=== PATIENT | female | born 1985 | race African-American/Black ===

== ENCOUNTER 2019-08-27 14:24 | Inpatient (IN) | payer SELFPAY ==
[~2019-08-27 14:24] MED LIST: Iopamidol-370 76% 500 ML 1 ML ONE
[2019-08-27] MEDS ORDERED: Ondansetron PF 4 MG/2 ML Vial ONE (14:47)
[2019-08-27] MEDS ORDERED: Morphine 4 MG/ML VIAL ONE ×3 (14:47→16:58)
[2019-08-27 15:38] LABS: Hemoglobin 13.7 g/dL (12.0-16.0); Mean Corpuscular HGB CONC 32.4 g/dL (32.0-36.0); Mean Corpuscular Hemoglobin 29.2 pg (27.0-31.0); Mean Platelet Volume 7.2 fL (7.4-10.4); Platelet Count 318 thou/uL (130-400); RBC Distribution Width 12.5 % (11.5-14.5); White Blood Cell (WBC) Count 15.4 thou/uL (4.8-10.8)
[2019-08-27 15:39] LABS: BHCG - Serum Negative (NEGATIVE); Pregs Control Background? CLEAR/WHITE (CLR/WHITE); Pregs Control Bar Appear? YES (CONTROL BAR)
[2019-08-27 15:52] LABS: ALT (SGPT) 12 U/L (8-55); AST (SGOT) 14 U/L (5-34); Albumin 3.9 g/dL (3.5-5.0); Alkaline Phosphatase 75 U/L (40-110); Anion Gap 12 mmol/L (10-20); BUN (Urea Nitrogen) 7 mg/dL (7.0-18.7); Bilirubin, Total 0.8 mg/dL (0.2-1.2); Calc. Creatinine Clearance 0 mL/min (70-130); Calcium 8.4 mg/dL (7.8-10.44); Carbon Dioxide 24 mmol/L (22-29); Chloride 104 mmol/L (98-107); Estimated GFR-MDRD Greater than 90; Glucose 119 mg/dL (70-105); Lipase 4 U/L (8-78); Potassium 3.8 mmol/L (3.5-5.1); Protein, Total 6.9 g/dL (6.0-8.3); Sodium 136 mmol/L (136-145)
[2019-08-27 15:53] LABS: Band 5 % (5-11); Eosinophils 2 % (0-10); Lymphocytes 4 % (21-51); MDiff Complete? YES; Monocytes 4 % (0-10); Neutrophil 84 % (42-75); Platelet Morphology Comment Appears Adequate; RBC Morphology Normal
--- NOTE | 2019-08-27 16:21 | CT ---
CT ABDOMEN AND PELVIS WITH IV CONTRAST 08/27/2019 CLINICAL INFORMATION: Abdominal pain with diarrhea. COMPARISON: None. Technique: Multiple contiguous axial CT images are obtained through the abdomen and pelvis with IV contrast. Cor onal reformatted images are provided. FINDINGS: Lower Chest: Bibasilar atelectasis. Vessels: Abdominal aorta is normal in caliber without evidence of an aortic dissection. Abdomen: Portal vein: Faintly opacified suggesting patency. Gallbladder: Increased density foci seen within the gallbladder compatible with cholelithiasis. Liver: within normal limits. Spleen: within normal limits. Pancreas: within normal limits. Adrenals: within normal limits. Kidneys: within normal limits. Bowel: Scattered colonic diverticula are seen in the descending colon. There is mild distention of th e cecum with fluid. Loops of small bowel are normal in caliber. Appendix: The appendix is mildly dilated measuring 8 mm in diameter. No periappendiceal inflammatory changes are seen. This could potentially be within normal limits for the patient. Peritoneum: No ascites or free air; no fluid collection. Mesentery and Retroperitoneum: No enlarged mesenteric or retroperitoneal lymph nodes. Abdominal Wall: within normal limits. Pelvis: Reproductive Organs: No pelvic masses. Pelvis within normal limits. Bladder: within normal limits. Bones: Degenerative changes are seen in the lumbosacral junction. IMPRESSION: 1. The appendix is mildly dilated measuring 8 mm, there is no periappendiceal inflammatory changes or fluid identified in the pelvis. Given mild dilatation of the appendix, findings are overall equivocal for appendicitis. However this is thought to more likely be within normal limits for the pa tient. Clinical correlation is recommended. 2. Fluid-filled cecum and ascending colon. 3. Cholelithiasis.
[2019-08-27 17:30] LABS: Bilirubin Negative (Negative); Blood, Urine Negative (Negative); Clarity Clear (Clear); Glucose, Urine (Dipstick) Normal (Negative); Leukocyte Negative Leu/uL (Negative); Nitrite Negative (Negative); Protein, Urine (Dipstick) Negative (Neg-Trace); Urobilinogen Normal mg/dL (Less than 2)
--- NOTE | 2019-08-27 18:43 | ULT ---
RIGHT UPPER QUADRANT ABDOMINAL ULTRASOUND: 08/27/19 COMPARISON: CT abdomen/pelvis08/27/19. HISTORY: Cholelithiasis seen on CT. Abdominal pain. TECHNIQUE: Multiplanar atwood scale and color Doppler images were obtained in a right upper quadrant abdominal ult rasound. FINDINGS: The liver is normal in echogenicity without focal lesions or intrahepatic ductal dilatation. The gall bladder contains multiple shadowing gallstones without gallbladder wall thickening or pericholecystic fluid. The common bile duct is enlarged measuring 8 mm. The visualized portions of the pancreas are unremarkable. The right kidney is normal in echogenicity without hydronephrosis or calculus and measures 10.6 cm in length. IMPRESSION: 1. Cholelithiasis. 2. Enlargement of the common bile duct. POS: EAA
[2019-08-27] MEDS ORDERED: Piperacillin/Tazobactam 4.5 GM VIAL ONE (19:23)
[2019-08-27] MEDS ORDERED: Acetaminophen 650 MG Suppository PR PRN (19:55)
[2019-08-27] MEDS ORDERED: Ondansetron ODT 4 MG TAB PO PRN (19:55)
[2019-08-27] MEDS ORDERED: Acetaminophen 325 MG TAB PO PRN (19:55)
[2019-08-27] MEDS ORDERED: Ondansetron PF 4 MG/2 ML Vial IVP PRN (19:55)
[2019-08-27] MEDS ORDERED: HumaLOG 300 UNITS/3 ML VIAL SC PRN (19:56)
[2019-08-27] MEDS ORDERED: Dextrose 5% in Water 1,000 ML IV PRN (19:56)
[2019-08-27] MEDS ORDERED: Morphine 4 MG/ML VIAL SLOW IVP PRN (19:56)
[2019-08-27] MEDS ORDERED: Dextrose 50% Abboject 50 ML SYRINGE SLOW IVP PRN (19:56)
[2019-08-27] MEDS ORDERED: Dextrose 5 %-0.45 % NaCl 1,000 ML IV SCH (20:00)
--- NOTE | 2019-08-27 20:05 | PDOC.HHP ---
Hospitalist HPI - History of Present Illness Abdominal pain History of Present Illness: Patient states she developed abdominal pain last night, states it was sudden in onset and sharp, in the supraumbilical region. The pain later woke her up from her sleep, she felt it might be gas and took gas-x. She eventually fell back asleep and woke in the morning with worsening pain which was radiating down to the RLQ. She reports feeling nauseated. The pain has been constant since this morning, described as a severe ache. She states the pain has been a 10/10 in severity with associated nausea but no vomiting. She did develop diarrhea. Denies any blood in her stools. In the ED she has had several doses of Morphine (4 mg x 3 and her pain has finally eased to a 5/10 in severity. ED Course: test was negative. Labs notable for a WCC of 15. LFTs and lipase normal. CT Abdomen/Pelvis: 1. The appendix is mildly dilated measuring 8 mm, there is no periappendiceal inflammatory changes or fluid identified in the pelvis. Given mild dilatation of the appendix, findings are overall equivocal for appendicitis. However this is thought to more likely be within normal limits for the patient. Clinical correlation is recommended. 2. Fluid-filled cecum and ascending colon. 3. Cholelithiasis. RUQ US: MPRESSION: 1. Cholelithiasis. 2. Enlargement of the common bile duct. Patient started on IV Zosyn and IV fluids. Case discussed with Dr. Benito, per Dr. Thomson. Referred for admission re: Cholecystitis vs. Appendicitis. Hospitalist ROS - Review of Systems Constitutional: reports: malaise. denies: fever, chills, sweats, weakness, other Eyes: denies: pain, vision change, conjunctivae inflammation, eyelid inflammation, redness, other ENT: denies: ear pain, ear discharge, nose pain, nose discharge, nose congestion , mouth pain, mouth swelling, throat pain, throat swelling, other Respiratory: reports: other (tachypnea due to pain, has improved since given morphine). denies: cough, dry, shortness of breath, hemoptysis, SOB with excertion, pleuritic pain, sputum, wheezing Cardiovascular: denies: chest pain, palpitations, orthopnea, paroxysmal noc. dyspnea, edema, light headedness, other Gastrointestinal: reports: abdominal pain, diarrhea Genitourinary: denies: dysuria, frequency, incontinence, hematuria, retention, other Musculoskeletal: denies: neck pain, shoulder pain, arm pain, back pain, hand pain, leg pain, foot pain, other Skin: denies: rash, lesions, romulo, bruising, other Neurological: denies: weakness, numbness, incoordination, change in speech, confusion, seizures, other - Medication Medications: ALLERGIES: No known drug allergies. CURRENT MEDICATIONS: hydrOXYzine HCl oral tablet : Strength - 10 mg : ORAL Patient Dose: Unknown.unknown dose. Adderall tablet : Strength - 15 mg : ORAL Patient Dose: Unknown.unknown dose. metFORMIN solution : Strength - 500 mg/5 mL : ORAL Patient Dose: Unknown.unknown dose. Hospitalist History - Past Medical History Source: patient Psych: reports: Anxiety Endocrine: reports: Diabetes - Past Surgical History Past Surgical History: reports: no pertinent history - Family History Family History: reports: no pertinent history - Social History Smoking Status: Never smoker Alcohol: reports: None Drugs: reports: none Living Situation: With Family Activity level: independent ambulation - Exam General Appearance: NAD, awake alert General - other findings: Drowsy, but easily woken and able to answer questions ENT: normocephalic atraumatic, no oropharyngeal lesions, moist mucosa Neck: supple, no lymphadenopathy Heart: RRR, no murmur, no gallops Respiratory: CTAB, no wheezes, no rales, normal chest expansion, no tachypnea Gastrointestinal: soft, non-distended, no palpable masses, tender to palpation ( RLQ, rebound tenderness, negative mata's sign.) Extremities: no edema Skin: normal turgor, no lesions, no rashes Neurological: cranial nerve grossly intact, no focal deficits Musculoskeletal: normal tone, normal strength, no muscle wasting Psychiatric: normal affect, normal behavior, A&O x 3 Hospitalist Results - Labs Result Diagrams: 08/27/19 15:08/27/19 15:19 Lab results: WBC 15.4 thou/uL (4.8-10.8) H 08/27/19 15:19 Hgb 13.7 g/dL (12.0-16.0) 08/27/19 15: Hct 42.3 % (36.0-47.0) 08/27/19 15:19 MCV 90.0 fL (78.0-98.0) 08/27/19 15:19 Plt Count 318 thou/uL (130-400) 08/27/19 15:19 Band Neuts % (Manual) 5 % (5-11) 08/27/19 15:19 Sodium 136 mmol/L (136-145) 08/27/19 15:19 Potassium 3.8 mmol/L (3.5-5.1) 08/27/19 15:19 Chloride 104 mmol/L (98-107) 08/27/19 15:19 Carbon Dioxide 24 mmol/L (22-29) 08/27/19 15:19 BUN 7 mg/dL (7.0-18.7) 08/27/19 15:19 Creatinine 0.73 mg/dL (0.6-1.1) 08/27/19 15:19 Glucose 119 mg/dL (70-105) H 08/27/19 15:19 Lactic Acid 1.1 mmol/L (0.5-2.2) 08/27/19 19:23 Calcium 8.4 mg/dL (7.8-10.44) 08/27/19 15:19 Total Bilirubin 0.8 mg/dL (0.2-1.2) 08/27/19 15:19 AST 14 U/L (5-34) 08/27/19 15:19 ALT 12 U/L (8-55) 08/27/19 15:19 Alkaline Phosphatase 75 U/L (40-110) 08/27/19 15:19 Serum Total Protein 6.9 g/dL (6.0-8.3) 08/27/19 15:19 Albumin 3.9 g/dL (3.5-5.0) 08/27/19 15:19 Lipase 4 U/L (8-78) L 08/27/19 15:19 Urine Ketones 40 mg/dL (Negative) A 08/27/19 17:13 Urine Blood Negative (Negative) 08/27/19 17:13 Urine Nitrite Negative (Negative) 08/27/19 17:13 Ur Leukocyte Esterase Negative Candace/uL (Negative) 08/27/19 17:13 - Radiology Interpretation CT scan - abdomen Status: report reviewed by [facility] Hospitalist H&P A/P - Problem (1) Abdominal pain Code(s): R10.9 - UNSPECIFIED ABDOMINAL PAIN Status: Acute (2) Diarrhea Code(s): R19.7 - DIARRHEA, UNSPECIFIED Status: Acute (3) Cholelithiasis Code(s): K80.20 - CALCULUS OF GALLBLADDER W/O CHOLECYSTITIS W/O OBSTRUCTION Status: Acute (4) Diabetes mellitus Code(s): E11.9 - TYPE 2 DIABETES MELLITUS WITHOUT COMPLICATIONS Status: Acute (5) Anxiety Code(s): F41.9 - ANXIETY DISORDER, UNSPECIFIED Status: Acute - Plan Plan: Possible appendicits given pain was periumbilical and now localized to the RLQ, + rebound tenderness and negative mata's sign. Appendix mildly dilated on imaging, measuring 8mm. Lactic acid has been requested. Continue IV fluids and IV antibiotics. Dr. Thomson has consulted Dr. Benito (General Surgery), awaiting surgical review. Patient is diabetic, ISS initiated and we will monitor glucose. Continue NPO. IV fluids. Will check Mg+. Monitor BP, slightly lower since Morphine given. GI prophylaxis: Famotidine. DVT Prophylaxis: Mechanical SCDs. Code Status: FULL Surrogate decision maker: Her mother Alden Patel.
[2019-08-28] MEDS: Dextrose 5 %-0.45 % NaCl 1,000 ML IV SCH ×3 (00:41→14:57)
[2019-08-28] MEDS: Piperacillin/Tazobactam 3.375 GM in Sodium Chloride 0.9% 100 ML IVPB SCH ×4 (00:42→20:47)
[2019-08-28] MEDS: Ketorolac Tromethamine 30 MG/ML VIAL IVP SCH ×5 (00:43→17:56)
[2019-08-28] MEDS: Famotidine/PF 20 mg/2ml Vial SLOW IVP SCH ×3 (00:43→20:48)
[2019-08-28 01:14] VITALS: BMI 28.2
[2019-08-28 06:55] LABS: Band 9 % (5-11); Hemoglobin 12.1 g/dL (12.0-16.0); Lymphocytes 5 % (21-51); MDiff Complete? YES; Mean Corpuscular HGB CONC 32.6 g/dL (32.0-36.0); Mean Corpuscular Hemoglobin 29.4 pg (27.0-31.0); Mean Corpuscular Volume 90.1 fL (78.0-98.0); Mean Platelet Volume 7.5 fL (7.4-10.4); Monocytes 2 % (0-10); Neutrophil 84 % (42-75); Platelet Count 310 thou/uL (130-400); Platelet Morphology Comment Appears Adequate; RBC Distribution Width 12.7 % (11.5-14.5); RBC Morphology Normal; Red Blood Cell (RBC) Count 4.12 mill/uL (4.20-5.40); White Blood Cell (WBC) Count 22.7 thou/uL (4.8-10.8)
[2019-08-28 07:02] LABS: ALT (SGPT) Less than 7 U/L (8-55); AST (SGOT) 11 U/L (5-34); Albumin 3.2 g/dL (3.5-5.0); Alkaline Phosphatase 64 U/L (40-110); Anion Gap 11 mmol/L (10-20); BUN (Urea Nitrogen) 10 mg/dL (7.0-18.7); Bilirubin, Total 0.6 mg/dL (0.2-1.2); Calc. Creatinine Clearance 119 mL/min (70-130); Calcium 7.9 mg/dL (7.8-10.44); Carbon Dioxide 23 mmol/L (22-29); Chloride 103 mmol/L (98-107); Estimated GFR-MDRD Greater than 90; Globulin 2.8 g/dL (2.4-3.5); Glucose 105 mg/dL (70-105); Potassium 3.7 mmol/L (3.5-5.1); Sodium 133 mmol/L (136-145)
[2019-08-28] MEDS ORDERED: Morphine 4 MG/ML VIAL ONE (09:35)
[2019-08-28] MEDS ORDERED: Fentanyl 100 MCG/2 ML VIAL ONE ×2 (09:56→11:32)
--- NOTE | 2019-08-28 09:57 | CON ---
DATE OF CONSULTATION: 08/28/2019 CHIEF COMPLAINT: Lower abdominal pain. HISTORY OF PRESENT ILLNESS: The patient is a 34-year-old black female. She noted onset of midabdominal pain on Thursday, August 25. She presented to the emergency room yesterday evening for evaluation of this pain. She noted the pain seemed to have radiated down toward the right side of her abdomen. She denied nausea or vomiting. She acknowledged one episode of diarrhea before she presented. In the emergency room, she underwent evaluation with laboratory and radiologic studies. Her CBC showed an elevated white blood cell count of 15.4 with a hemoglobin of 13.7. Chemistries were unremarkable with essentially normal electrolytes and liver function tests. Her urinalysis was also unremarkable. The CT scan revealed a slightly dilated appendix, but no evidence of periappendiceal inflammation. She was also noted to have cholelithiasis. She was admitted to the hospital for observation. She was started on antibiotics using Zosyn. This morning, she believes the pain is a little better, but notes that she still has some discomfort. She has been afebrile overnight with a maximum temperature of 99.6, her pulse rate has been as high as 101, but is currently 82. Laboratory evaluation this morning, however, does reveal that her white blood cell count has gone from 15.4 up to 22.7. PAST MEDICAL HISTORY: Significant for anxiety, ADD, diabetes mellitus. PAST SURGICAL HISTORY: None. MEDICATIONS: 1. Hydroxyzine. 2. Metformin. 3. Adderall. ALLERGIES: NO KNOWN DRUG ALLERGIES. PERSONAL AND SOCIAL HISTORY: She does not smoke and does not drink alcohol. She is . She has 4 children, none of whom live with her. She lives with her father in [place]. 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 REVIEW OF SYSTEMS: Otherwise unremarkable. FAMILY HISTORY: Noncontributory. PHYSICAL EXAMINATION: VITAL SIGNS: Temperature is 98.6, pulse 82, blood pressure is 92/56. GENERAL: She is a well-developed, well-nourished, pleasant black female, resting in bed, in no acute distress. She is alert and oriented x3. HEAD, EYES, EARS, NOSE, AND THROAT: Unremarkable. NECK: Supple without mass or tenderness. LUNGS: Clear to auscultation throughout. CARDIAC: Regular rate and rhythm without murmur. ABDOMEN: Nondistended. Bowel sounds are present and normoactive. She has obvious tenderness with mild diffuse tenderness. She has what appears to be more focal tenderness in the right lower quadrant with peritoneal findings. EXTREMITIES: Unremarkable. ASSESSMENT: The patient with suspected acute appendicitis. She does have cholelithiasis as well. Some cholecystitis is possible, but felt to be less likely. I recommend proceeding with laparoscopic appendectomy. I will evaluate her gallbladder during the surgery. If there are inflammatory changes, then cholecystectomy may be performed as well or in place of the appendectomy. She understands all this. I have explained the operation potential in detail with her as well as potential risks. She understands and agrees to proceed. Job ID: [id number]
[2019-08-28] MEDS ORDERED: Lidocaine 1% w/Epinephrine 1:100K 20 ML VIAL ONE (10:15)
[2019-08-28] MEDS ORDERED: Bupivacaine 0.25% HCL 30 ML VIAL ONE (10:15)
[2019-08-28] MEDS ORDERED: Rocuronium Bromide 10 MG/ML (10ML VIAL) ONE (11:29)
[2019-08-28] MEDS ORDERED: PHENYLEPHRINE-NS 100 MCG/ML 10 ML SYRINGE ONE (11:29)
[2019-08-28] MEDS ORDERED: PROPOFOL 200 MG/20 ML VIAL ONE (11:29)
[2019-08-28] MEDS ORDERED: Ketorolac Tromethamine 30 MG/ML VIAL ONE (11:29)
[2019-08-28] MEDS ORDERED: Lidocaine 1% PF 5 ML VIAL ONE (11:29)
[2019-08-28] MEDS ORDERED: Succinylcholine Chloride 20 MG/ML 10 ml SYRINGE FS ONE (11:29)
[2019-08-28] MEDS ORDERED: EPHEDRINE 25 MG/5 ML SYRINGE ONE (11:29)
[2019-08-28] MEDS ORDERED: Dexamethasone 20 MG/5 ML VIAL ONE (11:29)
[2019-08-28] MEDS ORDERED: Ondansetron PF 4 MG/2 ML Vial ONE (11:29)
[2019-08-28] MEDS ORDERED: SUGAMMADEX SODIUM 200 MG/2 ML VIAL ONE (11:32)
[2019-08-28] MEDS ORDERED: Promethazine HCl 25 MG/ML VIAL SLOW IVP PRN (12:03)
[2019-08-28] MEDS ORDERED: Morphine Sulfate 2 MG/ML SYRINGE SLOW IVP PRN (12:03)
[2019-08-28] MEDS ORDERED: PACU-Morphine 4MG/ML VIAL SLOW IVP PRN (12:03)
[2019-08-28] MEDS ORDERED: Meperidine HCl/PF 25 MG/ML VIAL SLOW IVP PRN (12:03)
[2019-08-28] MEDS ORDERED: Ondansetron HCl/PF 4 MG/2 ML Vial IVP PRN (12:03)
[2019-08-28] MEDS ORDERED: Promethazine HCl 25 MG/ML VIAL IM PRN (12:03)
[2019-08-28] MEDS ORDERED: HYDROmorphone 2 MG/ML VIAL SLOW IVP PRN (12:03)
--- NOTE | 2019-08-28 14:23 | PDOC.HOSPP ---
- Subjective Encounter Date: 08/28/19 Encounter Time: 02:20 Subjective: returned from OR, having brother. s/p appendectomy - Objective Vital Signs & Weight: Vital Signs (12 hours) Temp Pulse Resp BP BP Pulse Ox 08/28/19 08:00 99 08/28/19 07:15 98.6 F 82 17 92/56 L 99 08/28/19 04:00 99.1 F 93 16 97/62 98 Weight Weight 169 lb 12.095 oz Result Diagrams: 08/28/19 05:52 08/28/19 05:52 Additional Labs: Accuchecks 08/28/19 08/27/19 04:35 20:59 POC Glucose 114 H 116 H Hospitalist ROS - Medication Medications: Active Medications Generic Name Dose Route Start Last Admin Trade Name Freq PRN Reason Stop Dose Admin Famotidine 20 mg 08/27/19 21:00 08/28/19 08:04 Pepcid SLOW IVP 20 mg Q12HR ENRIKE Administration Piperacillin Sod/Tazobactam 100 mls @ 200 mls/hr 08/28/19 02:00 08/28/19 08: 03 Sod 3.375 gm/ Sodium Chloride IVPB 100 mls 0200,0800,1400,2000 ENRIKE Administration Dextrose/Sodium Chloride 1,000 mls @ 75 mls/hr 08/27/19 20:00 08/28/19 08:06 D5 1/2 Ns IV Not Given .[id number] ENRIKE Ketorolac Tromethamine 15 mg 08/27/19 23:59 08/28/19 06:23 Toradol IVP 08/30/19 23:59 15 mg Q6HR ENRIKE Administration - Exam General Appearance: NAD, awake alert Eye: PERRL ENT: normocephalic atraumatic Neck: supple Heart: RRR Respiratory: CTAB, normal chest expansion Gastrointestinal: soft, diminished bowl sounds Gastrointestinal - other findings: s/p appendectomy Neurological: no focal deficits Hosp A/P - Plan Abdominal pain (2) Diarrhea (3) Cholelithiasis (4) Diabetes mellitus Code(s): E11.9 - TYPE 2 DIABETES MELLITUS WITHOUT COMPLICATIONS Status: Acute (5) Anxiety - s/p s/p appendectomy -cw IV antibiotics until tomorrow and then will dc if clinically stable. --started broth - advance to diabetic diet as tatiana'd if ok w.. sux this evening. -am labs ordered - Morphine prn GI prophylaxis: Famotidine. scds.
[2019-08-28] MEDS ORDERED: Morphine 2 MG/ML SYRINGE SLOW IVP PRN (14:52)
[2019-08-28] MEDS: Acetaminophen 500 MG TAB PO SCH ×2 (14:58→20:48)
[2019-08-28] MEDS ORDERED: Sodium Chloride 0.9% 1,000 ML IV SCH (15:00)
[2019-08-28] MEDS: HumaLOG 300 UNITS/3 ML VIAL SC PRN (18:48)
[2019-08-28] MEDS: Potassium Chloride 20 MEQ in Lactated Ringer's 1,000 ML IV SCH (18:50)
[2019-08-29] MEDS: Ketorolac Tromethamine 30 MG/ML VIAL IVP SCH ×4 (00:46→17:36)
--- NOTE | 2019-08-29 00:55 | OP ---
DATE OF PROCEDURE: 08/28/2019 PREOPERATIVE DIAGNOSIS: Suspected acute appendicitis. POSTOPERATIVE DIAGNOSIS: Suspected acute appendicitis with what appeared to be evidence of peritonitis, suspected perforated tip appendicitis. PROCEDURE PERFORMED: Laparoscopic appendectomy with lower abdominal exploration, extensive abdominal washout. ANESTHESIA: General endotracheal. INDICATIONS: The patient is a 34-year-old black female. She presented to the hospital with abdominal pain. A CT scan was not definitive for appendicitis; however, after a period of brief observation, provided IV antibiotics and IV fluids, her pain persisted and leukocytosis worsened. I, therefore, recommended a laparoscopy with probable appendectomy. DESCRIPTION OF OPERATION: Informed consent was obtained. The patient was taken to the operating room, where general endotracheal anesthesia was obtained. The patient was laid in supine position after she was prepped with ChloraPrep and draped in sterile fashion. Young catheter was placed before surgery. Local anesthetic was infiltrated with a mixture of 1% lidocaine with epinephrine and 0.25% Marcaine. A 5 mm umbilical incision was created through which a Veress needle was passed into the peritoneal cavity and pneumoperitoneum was established using carbon dioxide up to a pressure of 15 mmHg. A 5 mm trocar port was placed through the same incision and a laparoscopic camera was passed through this port. Under direct vision, 2 additional ports were placed including a 5 mm left lower quadrant port and a 12 mm suprapubic port. There was noted to be a purulent-appearing fluid present within the abdomen. I initially examined the appendix, which appeared enlarged and somewhat inflamed. There was some omentum adherent to the tip of the appendix. Initially to my examination, the cyst did not appear to be consistent with a perforated appendicitis. However, secondary to the inflammation, I felt it appropriate to proceed with an appendectomy. The mesoappendix was taken down using the electrocautery, and the base of the appendix was skeletonized and divided using an Endo-JORGE stapler. The appendix was placed in a specimen retrieval bag, was removed through the suprapubic port. The fascia of the port site was closed with 0 Vicryl suture using a GraNee needle. I then conducted a thorough exploration of the remainder of the abdomen. I noted that the small bowel appeared to be inflamed through most of the length of the small bowel. I, therefore, ran the small bowel all the way from the cecum up to the ligament of Treitz. Aside from the inflammatory change with the erythema and injection, there was no obvious lesion associated with this. Purulence was encountered along the way and this was irrigated and aspirated. The gallbladder was inspected. This was without any evidence of inflammation. The patient does have known cholelithiasis. Aside from some minimal purulent-appearing fluid up around the liver, the liver was without obvious abnormality. The stomach was examined and again without inflammation at all. The pelvis was thoroughly examined, identifying both fallopian tubes, both ovaries, and uterus. There were no adhesions within the pelvis. The sigmoid colon was examined and found to be without evidence of inflammatory change. Having found no other etiology for the inflammation or possible infection, I proceeded to irrigate the abdomen with 2 L of warm saline. All irrigant was aspirated. The appendiceal staple line was examined for hemostasis. Not mentioned earlier that some of the intraabdominal fluid within the pelvis was aspirated upon entry and submitted for culture. All ports and instruments were removed under direct vision. Pneumoperitoneum was carefully evacuated. 0.25% Marcaine with epinephrine was infiltrated into each port site. Skin edges were approximated with 4-0 Monocryl subcuticular suture. Dermabond was placed externally. There were no complications. The patient tolerated the procedure well and was taken in stable condition to the recovery room. Job ID: [id number]
[2019-08-29] MEDS: Acetaminophen 500 MG TAB PO SCH ×4 (03:02→20:31)
[2019-08-29] MEDS: Piperacillin/Tazobactam 3.375 GM in Sodium Chloride 0.9% 100 ML IVPB SCH ×4 (03:03→20:29)
[2019-08-29 05:14] LABS: #Lymphocytes 0.8 thou/uL (1.20-3.40); #Monocytes 0.8 thou/uL (0.11-0.59); #Neutrophils 12.3 thou/uL (1.40-6.50); %Basophils 0.1 % (0.0-1.0); %Eosinophils 0.1 % (0.0-10.0); %Lymphocytes 5.9 % (21.0-51.0); %Monocytes 5.6 % (0.0-10.0); %Neutrophils 88.4 % (42.0-75.0); Hemoglobin 10.3 g/dL (12.0-16.0); Mean Corpuscular HGB CONC 31.7 g/dL (32.0-36.0); Mean Corpuscular Hemoglobin 28.7 pg (27.0-31.0); Mean Corpuscular Volume 90.3 fL (78.0-98.0); Mean Platelet Volume 7.6 fL (7.4-10.4); Platelet Count 284 thou/uL (130-400); RBC Distribution Width 12.6 % (11.5-14.5); White Blood Cell (WBC) Count 13.9 thou/uL (4.8-10.8)
[2019-08-29 05:30] LABS: ALT (SGPT) 7 U/L (8-55); AST (SGOT) 10 U/L (5-34); Albumin 2.8 g/dL (3.5-5.0); Alkaline Phosphatase 61 U/L (40-110); Anion Gap 10 mmol/L (10-20); BUN (Urea Nitrogen) 9 mg/dL (7.0-18.7); Bilirubin, Total 0.4 mg/dL (0.2-1.2); Calc. Creatinine Clearance 137 mL/min (70-130); Calcium 7.8 mg/dL (7.8-10.44); Carbon Dioxide 22 mmol/L (22-29); Chloride 108 mmol/L (98-107); Estimated GFR-MDRD Greater than 90; Globulin 2.6 g/dL (2.4-3.5); Glucose 114 mg/dL (70-105); Potassium 4.2 mmol/L (3.5-5.1); Protein, Total 5.4 g/dL (6.0-8.3); Sodium 136 mmol/L (136-145)
[2019-08-29] MEDS: Potassium Chloride 20 MEQ in Lactated Ringer's 1,000 ML IV SCH ×2 (05:46→08:47)
[2019-08-29] MEDS: Famotidine/PF 20 mg/2ml Vial SLOW IVP SCH ×2 (08:27→20:32)
--- NOTE | 2019-08-29 09:04 | PRG ---
DATE OF SERVICE: 08/29/2019 SUBJECTIVE: Ms. Fraser is postoperative day #1 following laparoscopic appendectomy. She appeared to have purulent material diffusely within the abdomen consistent with perforation. Interestingly, her initial cultures show no organisms seen within the fluid that was submitted within her peritoneum. She has been on Zosyn since her surgery. She tells me she feels much better and her discomfort is dramatically improved. She is hungry. OBJECTIVE: VITAL SIGNS: On examination, she is afebrile. Pulse is 63 and blood pressure is 100/69. GENERAL: She has been voiding regularly. LUNGS: Clear to auscultation. ABDOMEN: Soft with normoactive bowel sounds. Laparoscopic incisions are healing nicely. LABORATORY DATA: Her white blood cell count is down from 22 yesterday to 13.9 today. Hemoglobin is 10.3. Her chemistry profile reveals her electrolytes are unremarkable. Her sugars have been relatively well controlled. She has a sliding scale ordered. ASSESSMENT: The patient with what is presumed to have been perforated appendicitis. No other etiology of intraabdominal abnormality is noted. In light of this, I would recommend one more day of intravenous antibiotics. I will decrease her IV fluid rate and advance her diet up to a regular diet. I will check her CBC in the morning. I would anticipate discharge home tomorrow. Job ID: [id number]
[2019-08-29] MEDS: HumaLOG 300 UNITS/3 ML VIAL SC PRN (11:45)
--- NOTE | 2019-08-29 13:03 | PDOC.HOSPP ---
- Subjective Encounter Date: 08/29/19 Encounter Time: 09:50 Subjective: tolerating PO, denies abd. pain. - Objective Vital Signs & Weight: Vital Signs (12 hours) Temp Pulse Resp BP Pulse Ox 08/29/19 10:50 97.6 F 101 H 16 94/61 96 08/29/19 08:25 97 08/29/19 07:33 97.6 F 63 16 100/69 97 08/29/19 03:08 97.9 F 62 18 93/57 L 98 Weight Weight 169 lb 12.095 oz I&O: 08/28/19 08/29/19 08/30/19 06:59 06:59 06:59 Intake Total 4460 350 Output Total 250 Balance 4210 350 Result Diagrams: 08/29/19 04:48 08/29/19 04:48 Additional Labs: Accuchecks 08/29/19 08/29/19 08/28/19 10:54 05:05 20:43 POC Glucose 203 H 110 215 H 08/28/19 17:59 POC Glucose 194 H Hospitalist ROS - Medication Medications: Active Medications Generic Name Dose Route Start Last Admin Trade Name Freq PRN Reason Stop Dose Admin Acetaminophen 1,000 mg 08/28/19 15:00 08/29/19 08:27 Tylenol PO 1,000 mg 0300,0900,1500,2100 ENRIKE Administration Famotidine 20 mg 08/27/19 21:00 08/29/19 08:27 Pepcid SLOW IVP 20 mg Q12HR ENRIKE Administration Piperacillin Sod/Tazobactam 100 mls @ 200 mls/hr 08/28/19 02:00 08/29/19 08: 27 Sod 3.375 gm/ Sodium Chloride IVPB 100 mls 0200,0800,1400,2000 ENRIKE Administration Potassium Chloride 20 meq/ 1,010 mls @ 50 mls/hr 08/29/19 08:38 08/29/19 08: 47 Lactated Ringer's IV Not Given .[id number] ENRIKE Insulin Human Lispro 0 units 08/27/19 19:56 08/29/19 11:45 Humalog SC 3 unit .MILD SLIDING SCALE PRN Administration Mild Correctional Scale Insulin Human Lispro 0 units 08/27/19 19:56 08/28/19 20:48 Humalog SC 3 unit .BEDTIME SLIDING SC PRN Administration Bedtime Correctional Scale Ketorolac Tromethamine 30 mg 08/28/19 18:00 08/29/19 11:45 Toradol IVP 09/02/19 18:01 30 mg Q6HR ENRIKE Administration - Exam General Appearance: NAD, awake alert Eye: PERRL ENT: normocephalic atraumatic Heart: RRR Respiratory: CTAB, normal chest expansion Gastrointestinal: soft, normal bowel sounds Neurological: no focal deficits Hosp A/P - Plan Abdominal pain (2) Diarrhea (3) Cholelithiasis (4) Diabetes mellitus Code(s): E11.9 - TYPE 2 DIABETES MELLITUS WITHOUT COMPLICATIONS Status: Acute (5) Anxiety - s/p appendectomy with perf.. appendicitis -cw IV antibiotics until tomorrow and then will dc if clinically stable. --started broth - diabetic diet -am labs ordered - Morphine prn GI prophylaxis: Famotidine. scds. tolerating PO intake.
[2019-08-30] MEDS: Ketorolac Tromethamine 30 MG/ML VIAL IVP SCH ×2 (00:40→06:31)
[2019-08-30] MEDS: Acetaminophen 500 MG TAB PO SCH ×2 (03:19→09:22)
[2019-08-30] MEDS: Piperacillin/Tazobactam 3.375 GM in Sodium Chloride 0.9% 100 ML IVPB SCH ×2 (03:20→09:12)
[2019-08-30] MEDS: Potassium Chloride 20 MEQ in Lactated Ringer's 1,000 ML IV SCH (06:31)
[2019-08-30 06:43] LABS: #Eosinphils 0.2 thou/uL (0.0-0.7); #Lymphocytes 1.8 thou/uL (1.20-3.40); #Monocytes 0.6 thou/uL (0.11-0.59); #Neutrophils 7.4 thou/uL (1.40-6.50); %Basophils 0.5 % (0.0-1.0); %Eosinophils 1.6 % (0.0-10.0); %Lymphocytes 18.1 % (21.0-51.0); %Monocytes 6.1 % (0.0-10.0); %Neutrophils 73.8 % (42.0-75.0); Hemoglobin 10.3 g/dL (12.0-16.0); Mean Corpuscular HGB CONC 31.7 g/dL (32.0-36.0); Mean Corpuscular Hemoglobin 28.8 pg (27.0-31.0); Mean Corpuscular Volume 90.7 fL (78.0-98.0); Mean Platelet Volume 7.6 fL (7.4-10.4); Platelet Count 299 thou/uL (130-400); RBC Distribution Width 12.9 % (11.5-14.5); Red Blood Cell (RBC) Count 3.57 mill/uL (4.20-5.40)
[2019-08-30 07:01] LABS: Anion Gap 10 mmol/L (10-20); BUN (Urea Nitrogen) 11 mg/dL (7.0-18.7); Calc. Creatinine Clearance 135 mL/min (70-130); Calcium 7.8 mg/dL (7.8-10.44); Carbon Dioxide 21 mmol/L (22-29); Chloride 110 mmol/L (98-107); Estimated GFR-MDRD Greater than 90; Glucose 99 mg/dL (70-105); Potassium 3.9 mmol/L (3.5-5.1); Sodium 137 mmol/L (136-145)
[2019-08-30] MEDS: Famotidine/PF 20 mg/2ml Vial SLOW IVP SCH (09:12)
[2019-08-30] MEDS ORDERED: traMADol HCl 50 MG TAB PO PRN (09:23)
[2019-08-30] MEDS ORDERED: Amoxicillin/Potassium Clav 875 MG TAB PO SCH ×2 (09:30→21:00)
[2019-08-30 12:35] VITALS: BP 108/74; TEMP 98.1
[2019-08-30] MEDS ORDERED: Fluconazole 100 MG TAB PO SCH (13:00)
--- NOTE | 2019-08-30 15:00 | DIS ---
DATE OF ADMISSION: 08/27/2019 DATE OF DISCHARGE: 08/30/2019 DISCHARGE DIAGNOSES: 1. Abdominal pain. 2. Cholelithiasis. 3. Type 2 diabetes mellitus. 4. Anxiety. 5. Abdominal pain, gastroenteritis. 6. Perforated appendicitis, status post appendectomy. DISCHARGE MEDICATIONS: 1. Augmentin 875 twice a day. 2. Advil 20 mg daily. 3. Hydroxyzine 25 mg q.8 hours. 4. Lisinopril 5 mg daily. 5. Metformin 500 mg b.i.d. Consult General Surgery with Dr. Floyd Benito. PHYSICAL EXAMINATION: VITAL SIGNS: On the day of discharge, patient is resting. No acute events or complaints. GENERAL: She is able to tolerate her diet. I have examined her abdominal area. Her suture site looks good. CARDIOVASCULAR: Regular rate and rhythm without murmurs, rubs, or gallops. LUNGS: Clear to auscultation bilaterally without rales or rhonchi. ABDOMEN: Good bowel sounds. BS positive, and non-tender. The patient is ambulating. No shortness of breath or abdominal distress. HOSPITAL COURSE: A 34-year-old female presented with intractable abdominal pain as well as diarrhea. She had cholelithiasis as well as appendicitis. She went to surgery on August 27 for suspected acute appendicitis. She had a laparoscopic appendectomy with lower abdominal exploration and extensive abdominal washout. Postprocedure james, she did well. She was ambulating, tolerating her regular diet. She is expected to follow with Dr. Floyd Benito in 2 weeks. DISCHARGE INSTRUCTIONS: 1. Activity: As tolerated. 2. Diet: Regular diet. 3. Follow up with [facility] in 1 week. Follow up with Dr. Floyd Benito in 2 weeks. Job ID: [id number] [id number]
--- NOTE | 2019-08-31 02:37 | DIS ---
DATE OF ADMISSION: 08/27/2019 DATE OF DISCHARGE: 08/30/2019 ADMISSION DIAGNOSIS: Acute appendicitis. DISCHARGE DIAGNOSIS: Acute appendicitis, perforated. OPERATION PERFORMED: Laparoscopic appendectomy with abdominal washout on August 27. ADMISSION HISTORY: The patient is a 34-year-old black female. She presented to the hospital with complaint of abdominal pain and leukocytosis. CT scan was equivocal for appendicitis. No definite etiology of pain was noted. She was recognized to have cholelithiasis. She was admitted to the Hospitalist Service for observation. HOSPITAL COURSE: I saw the patient the following morning on August 27. Her pain was somewhat better in her estimation, but she still clearly had severe abdominal pain. It seemed to be more diffuse than typical. Additionally, her white blood cell count had gone up. I recommended laparoscopic appendectomy. She underwent uneventful surgery. There did appear to be diffuse purulence. Interestingly, the cultures from within the abdominal cavity did not reveal organisms. Although there were definitely adhesions to the appendix, I was not certain that this is a source of perforation. The only area that appeared significantly abnormal was at the tip of the appendix and I felt that this was therefore likely perforated tip appendicitis. Thorough exploration of the remainder of the abdomen revealed no other definite infectious source. Following the surgery, she did much better. She was afebrile throughout. Her vital signs were normal. She was hungry and desired advancement of her diet the following day. I continued her on Zosyn until she was discharged. Final cultures at the time were still pending, but there is no definite organism that was seen on culture. Her white blood cell count dropped from 22 before surgery down to 14 the day after surgery and down to 10 today. Today, she is tolerating her diet. Of note, she has minimal discomfort and feels very well. She is discharged home today with a prescription for Augmentin 875 mg for 5 days. She requires no pain medication other than ibuprofen or Tylenol. She will follow up from my office in 10 to 14 days. She is given instructions regarding activity and dietary restrictions. Job ID: [id number]
[2019-08-31] MEDS ORDERED: Fluconazole 100 MG TAB PO SCH (12:00)
[2019-09-01 20:08] LABS: GC by PCR Inconclusive (NotDetected)
[2019-09-01 20:09] LABS: Chlamydia by PCR Inconclusive (NotDetected)
== END 2019-08-30 14:00 | disposition home or self-care (01) | DRG 340 ==
LOC: ERS 14:24 → T4-A 20:43 → SURG A 08-28 13:00
PROVIDERS: ADMIT Internal Medicine; ATTEND Internal Medicine
PROC: 0DTJ4ZZ Resection of Appendix, Percutaneous Endoscopic Approach (ICD-10-PCS; principal; 2019-08-28)
DX: K35.32 Acute appendicitis with perforation, localized peritonitis, and gangrene, without abscess (principal); F41.9 Anxiety disorder, unspecified; E11.9 Type 2 diabetes mellitus without complications; K80.20 Calculus of gallbladder without cholecystitis without obstruction; F98.8 Other specified behavioral and emotional disorders with onset usually occurring in childhood and adolescence; J45.909 Unspecified asthma, uncomplicated; K52.9 Noninfective gastroenteritis and colitis, unspecified
CPT/HCPCS: 36415; 36416; 74177; 76705; 80048; 80053; 81003; 83605; 83690; 83735; 84703; 85025; 87040; 87070; 87205; 87480; 87491; 87510; 87591; 87660; 88304; 96361; 96365; 96375; 96376; J1100; J1885; J2001; J2270; J2405; J2543; J2704; J3010; J3480; J3490; J7120; Q9967; S0020; S0028

== ENCOUNTER 2021-04-15 04:36 | Emergency (ER) | payer SELFPAY ==
[2021-04-15] MEDS ORDERED: Acetaminophen 500 MG TAB ONE (04:58)
[2021-04-15] MEDS ORDERED: Ketorolac Tromethamine 30 MG/ML VIAL ONE (04:58)
== END 2021-04-15 06:09 | disposition home or self-care (01) ==
LOC: ERS 04:36
DX: K08.89 Other specified disorders of teeth and supporting structures (principal); I10 Essential (primary) hypertension; E11.9 Type 2 diabetes mellitus without complications; J45.909 Unspecified asthma, uncomplicated
CPT/HCPCS: 96372; 99283; J1885

== ENCOUNTER 2024-03-24 10:58 | Emergency (ER) | payer OTHER, SELFPAY ==
[2024-03-24] MEDS ORDERED: Ondansetron PF 4 MG/2 ML Vial ONE (11:22)
[2024-03-24 11:38] LABS: #Basophils 0.06 10x3/uL (0.0-0.2); %Basophils 0.9 % (0.0-1.0); %Eosinophils 4.6 % (0.0-10.0); %Monocytes 9.5 % (0.0-10.0); %Neutrophils 67.8 % (42.0-75.0); Hematocrit 38.5 % (36.0-47.0); Hemoglobin 12.3 g/dL (12.0-16.0); Mean Corpuscular HGB CONC 31.9 g/dL (32.0-36.0); Mean Corpuscular Hemoglobin 26.6 pg (27.0-31.0); Mean Corpuscular Volume 83.3 fL (78.0-98.0); Mean Platelet Volume 9.4 fL (7.4-10.4); Platelet Count 386 10x3/uL (130-400); RBC Distribution Width 14.6 % (11.5-14.5); Red Blood Cell (RBC) Count 4.62 mill/uL (4.20-5.40)
[2024-03-24 11:59] LABS: Troponin I Less than 0.010 ng/mL (< 0.028)
[2024-03-24 12:05] LABS: ALT (SGPT) 9 U/L (8-55); AST (SGOT) 16 U/L (5-34); Albumin 3.5 g/dL (3.5-5.0); Alkaline Phosphatase 78 U/L (40-110); Anion Gap 13 mmol/L (10-20); BUN (Urea Nitrogen) 15 mg/dL (7.0-18.7); Bilirubin, Total 0.2 mg/dL (0.2-1.2); Calc. Creatinine Clearance 0 mL/min (70-130); Calcium 9.3 mg/dL (7.8-10.44); Carbon Dioxide 25 mmol/L (22-29); Chloride 105 mmol/L (98-107); Estimated GFR 86; Globulin 3.2 g/dL (2.4-3.5); Glucose 198 mg/dL (70-105); Lipase 22 U/L (8-78); Potassium 3.7 mmol/L (3.5-5.1); Protein, Total 6.7 g/dL (6.0-8.3); Sodium 139 mmol/L (136-145)
[2024-03-24 12:31] LABS: Bilirubin Negative (Negative); Blood, Urine Negative (Negative); CAUTI Indications for Culture Pelvic or flank pain; Clarity Turbid (Clear); Glucose, Urine (Dipstick) 50 mg/dL (Negative); Ketone, Urine Negative (Negative); Leukocyte Negative Leu/uL (Negative); Nitrite Negative (Negative); Protein, Urine (Dipstick) Negative (Neg-Trace); RBC/HPF 0-3 HPF (0-3); Specific Gravity, Urine 1.011 (1.002-1.036); Squamous Epithelial None Seen HPF (0-3); Urobilinogen Normal mg/dL (Less than 2); WBC/HPF 0-3 HPF (0-3)
[2024-03-24 12:38] LABS: Bacteria/HPF Rare-Few HPF (None Seen)
[2024-03-24 12:39] LABS: Urine Culture Reflex No No
== END 2024-03-24 13:15 | disposition home or self-care (01) ==
LOC: ERS 10:58
DX: K80.20 Calculus of gallbladder without cholecystitis without obstruction (principal); R11.2 Nausea with vomiting, unspecified; I10 Essential (primary) hypertension; F17.290 Nicotine dependence, other tobacco product, uncomplicated
CPT/HCPCS: 36415; 76705; 80053; 81001; 83690; 84484; 85025; 93005; 96374; J2405